=== PATIENT | male | born 1965 | race Caucasian/White ===

== ENCOUNTER 2018-11-19 15:40 | Emergency (ER) | payer OTHER, BC ==
[~2018-11-19] VITALS: Ht 177.8 cm; Wt 94.9 kg
[2018-11-19 15:50] VITALS: BP 140/56
--- NOTE | 2018-11-19 15:50 | NUR ---
PATIENT AMBULATED TO BED 8
--- NOTE | 2018-11-19 16:08 | NUR ---
53M WHO LIVES AT [facility] C/O ESOPHAGEAL SPASMS WORSENING OVER THE LAST 3 WEEKS. HAS HAD THIS PROBLEM FOR YEARS PRIOR. STATES HE IS CHOKING ON FOODS, BUT NOT WATER. STATES SLIGHT SOB. DECREASED LUNG SOUNDS ON RIGHT UPPER LOBE ANTERIORLY. MILD DISTRESS. 96-97% RA. HX- MS, MILD RETARDATION Addendum: 11/19/18 at 1619 by GARRISON HOARSE VOICE. COUGHING NOTED.
--- NOTE | 2018-11-19 16:35 | NUR ---
DR. GARIBAY EVALUATING PT AT BEDSIDE
[2018-11-19 18:35] VITALS: BP 133/57
== END 2018-11-19 18:37 | disposition home or self-care (01) ==
LOC: MED 15:40
DX: R53.1 Weakness (principal); G89.29 Other chronic pain; G35 Multiple sclerosis
CPT/HCPCS: 99283

== ENCOUNTER 2023-02-09 17:03 | Emergency (ER) | payer BC, OTHER ==
[~2023-02-09] VITALS: Ht 177.8 cm; Wt 77.1 kg
[2023-02-09 17:08] VITALS: BP 128/76; PULSE 87; RESP 18; TEMP 98.4; O2SAT 97
[2023-02-09 17:59] LABS: FLU A ANTIGEN POSITIVE (NEGATIVE); FLU B ANTIGEN NEGATIVE (NEGATIVE)
== END 2023-02-09 18:10 | disposition left against medical advice (07) ==
LOC: MED 17:03
DX: R07.0 Pain in throat (principal); Z20.822 Contact with and (suspected) exposure to COVID-19; Z53.21 Procedure and treatment not carried out due to patient leaving prior to being seen by health care provider
CPT/HCPCS: 87081; 99281; 99283

== ENCOUNTER 2023-06-02 12:25 | Emergency (ER) | payer BC, MEDICAID ==
[~2023-06-02] VITALS: Ht 177.8 cm; Wt 77.1 kg
[~2023-06-02 12:25] MED LIST: CLON0.5T4 PO; PRED20TA5 PO; QUET25TA46 PO; [UNRECOGNIZED DRUG - CODE] PO
[2023-06-02 12:33] VITALS: BP 135/99; PULSE 85; TEMP 98.3; O2SAT 96
[2023-06-02] MEDS: MORPHINE SULFATE 4 MG/ML SYR IM ONE ×2 (13:12→14:43)
[2023-06-02] MEDS: ALUMINUM HYD/MAG/SIMETHICONE 30 ML UDC PO ONE ×2 (13:13→14:38)
[2023-06-02] MEDS: FAMOTIDINE 20 MG TAB PO ONE (13:13)
[2023-06-02 13:20] LABS: BASOPHILS # (AUTO) 0.1 K/uL (0.00-0.22); BASOPHILS % (AUTO) 0.8 % (0.0-2.0); EOSINOPHILS % (AUTO) 0.1 % (0.0-4.0); HEMATOCRIT 39.1 % (36-52); HEMOGLOBIN 13.6 g/dL (12.0-18.0); LYMPHOCYTES # (AUTO) 1.1 K/uL (2.0-11.5); LYMPHOCYTES % (AUTO) 11.2 % (20.5-51.1); MEAN CORPUSCULAR HEMOGLOBIN 32 pg (27-31); MEAN CORPUSCULAR HGB CONC 35 g/dL (33-37); MEAN CORPUSCULAR VOLUME 91.6 fL (80-94); MONOCYTES # (AUTO) 0.5 K/uL (0.8-1.0); MONOCYTES % (AUTO) 4.6 % (1.7-9.3); NEUTROPHILS # (AUTO) 8.3 K/uL (1.8-7.7); NEUTROPHILS % (AUTO) 83.3 % (42.2-75.2); PLATELET COUNT (AUTO) 266 K/uL (140-450); RED BLOOD CELL COUNT(AUTO) 4.27 MIL/uL (4.20-6.10); RED CELL DISTRIBUTION WIDTH 15.2 % (11.6-13.7); WHITE BLOOD COUNT (AUTO) 9.9 K/uL (4.8-10.8)
[2023-06-02 13:33] LABS: ANION GAP 13.7 (8-16); CALCIUM 8.6 mg/dL (8.5-10.1); CARBON DIOXIDE 26.1 mmol/L (21-32); CREATININE 0.9 mg/dL (0.6-1.3); POTASSIUM 3.8 mmol/L (3.5-5.1)
[2023-06-02 13:40] LABS: ALBUMIN 3.6 g/dL (3.4-5.0); BILIRUBIN,DIRECT 0.1 mg/dL (0.0-0.3); TOTAL BILIRUBIN 0.5 mg/dL (0.0-1.0)
[2023-06-02] MEDS ORDERED: SUCR1TAB35 PO (14:22)
[2023-06-02] MEDS ORDERED: PANT40EC PO (14:22)
[2023-06-02 15:47] VITALS: BP 116/87; PULSE 95; RESP 20; O2SAT 96
[2023-06-02] MEDS ORDERED: DEXL30EC PO (15:47)
== END 2023-06-02 15:47 | disposition home or self-care (01) ==
LOC: MED 12:25
DX: K21.9 Gastro-esophageal reflux disease without esophagitis (principal); F41.9 Anxiety disorder, unspecified; Z79.899 Other long term (current) drug therapy; Z90.49 Acquired absence of other specified parts of digestive tract
CPT/HCPCS: 36415; 80048; 80076; 83690; 85025; 96372; 99284; J2270

== ENCOUNTER 2023-06-06 09:01 | Emergency (ER) | payer BC, MEDICAID ==
[~2023-06-06] VITALS: Ht 177.8 cm; Wt 81.6 kg
[~2023-06-06 09:01] MED LIST changes: +DEXL30EC PO; +PANT40EC PO; +SUCR1TAB35 PO
[2023-06-06 09:04] VITALS: BP 110/80; PULSE 117; RESP 20; TEMP 98.3; O2SAT 100
[2023-06-06] MEDS ORDERED: DICYCLOMINE HCL LIQUID 10 MG/5 ML UDC ONE (09:52)
[2023-06-06] MEDS ORDERED: ALUMINUM HYD/MAG/SIMETHICONE 30 ML UDC ONE (09:52)
[2023-06-06] MEDS: DICYCLOMINE HCL LIQUID 20 MG, ALUMINUM HYD/MAG/SIMETHICONE 30 ML, LIDOCAINE VISCOUS 2% ... PO ONE (09:56)
[2023-06-06] MEDS: FAMOTIDINE 20 MG TAB PO ONE (09:56)
[2023-06-06] MEDS: ALUMINUM HYD/MAG/SIMETHICONE 30 ML UDC PO ONE (09:57)
[2023-06-06 10:45] LABS: BASOPHILS % (AUTO) 0.7 % (0.0-2.0); EOSINOPHILS # (AUTO) 0.1 K/uL (0-0.4); HEMATOCRIT 42.7 % (36-52); HEMOGLOBIN 14.8 g/dL (12.0-18.0); LYMPHOCYTES # (AUTO) 1.3 K/uL (2.0-11.5); LYMPHOCYTES % (AUTO) 17.9 % (20.5-51.1); MEAN CORPUSCULAR HEMOGLOBIN 32 pg (27-31); MEAN CORPUSCULAR HGB CONC 35 g/dL (33-37); MEAN CORPUSCULAR VOLUME 91.9 fL (80-94); MONOCYTES # (AUTO) 0.3 K/uL (0.8-1.0); MONOCYTES % (AUTO) 4.8 % (1.7-9.3); NEUTROPHILS # (AUTO) 5.4 K/uL (1.8-7.7); NEUTROPHILS % (AUTO) 75.6 % (42.2-75.2); PLATELET COUNT (AUTO) 349 K/uL (140-450); RED BLOOD CELL COUNT(AUTO) 4.64 MIL/uL (4.20-6.10); RED CELL DISTRIBUTION WIDTH 15.1 % (11.6-13.7); WHITE BLOOD COUNT (AUTO) 7.2 K/uL (4.8-10.8)
[2023-06-06 10:58] LABS: ANION GAP 14.3 (8-16); CALCIUM 8.7 mg/dL (8.5-10.1); CARBON DIOXIDE 23.3 mmol/L (21-32); CREATININE 0.8 mg/dL (0.6-1.3); POTASSIUM 3.6 mmol/L (3.5-5.1)
[2023-06-06] MEDS: MORPHINE SULFATE 4 MG/ML SYR IM ONE (11:25)
== END 2023-06-06 11:55 | disposition home or self-care (01) ==
LOC: MED 09:01
DX: R07.0 Pain in throat (principal); K21.9 Gastro-esophageal reflux disease without esophagitis; Z79.899 Other long term (current) drug therapy
CPT/HCPCS: 36415; 71045; 80048; 84484; 85025; 93005; 96372; 99285; J2270

== ENCOUNTER 2023-06-07 11:18 | Emergency (ER) | payer BC, MEDICAID ==
[~2023-06-07] VITALS: Ht 177.8 cm; Wt 76.7 kg
[~2023-06-07 11:18] MED LIST changes: +SUCR-34 PO; -SUCR1TAB35 PO; +[UNRECOGNIZED DRUG - CODE] PO; -[UNRECOGNIZED DRUG - CODE] PO
[2023-06-07 11:28] VITALS: BP 132/81; PULSE 98; RESP 20; TEMP 98.1; O2SAT 97
[2023-06-07 14:05] LABS: BASOPHILS % (AUTO) 0.4 % (0.0-2.0); EOSINOPHILS % (AUTO) 0.4 % (0.0-4.0); HEMATOCRIT 41.3 % (36-52); HEMOGLOBIN 14.4 g/dL (12.0-18.0); LYMPHOCYTES # (AUTO) 1.4 K/uL (2.0-11.5); MEAN CORPUSCULAR HEMOGLOBIN 32 pg (27-31); MEAN CORPUSCULAR HGB CONC 35 g/dL (33-37); MEAN CORPUSCULAR VOLUME 92.4 fL (80-94); MONOCYTES # (AUTO) 0.4 K/uL (0.8-1.0); MONOCYTES % (AUTO) 4.6 % (1.7-9.3); NEUTROPHILS # (AUTO) 6.9 K/uL (1.8-7.7); NEUTROPHILS % (AUTO) 78.6 % (42.2-75.2); PLATELET COUNT (AUTO) 334 K/uL (140-450); RED BLOOD CELL COUNT(AUTO) 4.47 MIL/uL (4.20-6.10); RED CELL DISTRIBUTION WIDTH 15.2 % (11.6-13.7); WHITE BLOOD COUNT (AUTO) 8.7 K/uL (4.8-10.8)
[2023-06-07 14:20] LABS: ALBUMIN 3.8 g/dL (3.4-5.0); TOTAL BILIRUBIN 0.2 mg/dL (0.0-1.0); TOTAL PROTEIN, SERUM 7.3 g/dL (6.4-8.2)
[2023-06-07 14:22] LABS: ANION GAP 15.3 (8-16); CALCIUM 8.9 mg/dL (8.5-10.1); CARBON DIOXIDE 27.3 mmol/L (21-32); CREATININE 0.9 mg/dL (0.6-1.3); POTASSIUM 3.6 mmol/L (3.5-5.1)
[2023-06-07] MEDS ORDERED: ALUMINUM HYD/MAG/SIMETHICONE 30 ML UDC ONE (15:45)
[2023-06-07] MEDS ORDERED: DICYCLOMINE HCL LIQUID 10 MG/5 ML UDC ONE (15:45)
[2023-06-07] MEDS: DICYCLOMINE HCL LIQUID 20 MG, ALUMINUM HYD/MAG/SIMETHICONE 30 ML, LIDOCAINE VISCOUS 2% ... PO ONE (15:51)
[2023-06-07] MEDS: LORazepam 1 MG TAB PO ONE (15:51)
[2023-06-07] MEDS: OLANZapine 5 MG ODT SL ONE (15:52)
[2023-06-07] MEDS: FAMOTIDINE 20 MG TAB PO ONE (15:52)
== END 2023-06-07 17:51 | disposition left against medical advice (07) ==
LOC: MED 11:18
DX: K29.70 Gastritis, unspecified, without bleeding (principal); F41.9 Anxiety disorder, unspecified; K21.9 Gastro-esophageal reflux disease without esophagitis; Z79.899 Other long term (current) drug therapy
CPT/HCPCS: 36415; 71045; 80048; 80076; 84484; 85025; 93005; 99285

== ENCOUNTER 2023-06-26 16:32 | Emergency (ER) | payer BC, MEDICAID ==
[~2023-06-26] VITALS: Ht 177.8 cm; Wt 81.6 kg
[2023-06-26 16:35] VITALS: BP 107/72; PULSE 90; RESP 22; TEMP 97.8; O2SAT 100
[2023-06-26] MEDS ORDERED: METO-486 PO (16:56)
== END 2023-06-26 16:59 | disposition home or self-care (01) ==
LOC: MED 16:32
DX: R11.0 Nausea (principal); K21.9 Gastro-esophageal reflux disease without esophagitis; Z79.899 Other long term (current) drug therapy
CPT/HCPCS: 99281

== ENCOUNTER 2023-07-05 09:54 | Emergency (ER) | payer BC, MEDICAID ==
[~2023-07-05] VITALS: Ht 177.8 cm; Wt 77.1 kg
[~2023-07-05 09:54] MED LIST changes: +METO-486 PO
[2023-07-05 09:59] VITALS: BP 133/89; PULSE 100; RESP 18; TEMP 98.7; O2SAT 96
[2023-07-05] MEDS ORDERED: LIDO15SO10 PO (12:33)
[2023-07-05] MEDS ORDERED: DICYCLOMINE HCL LIQUID 10 MG/5 ML UDC ONE (12:34)
[2023-07-05] MEDS ORDERED: ALUMINUM HYD/MAG/SIMETHICONE 30 ML UDC ONE (12:34)
[2023-07-05] MEDS ORDERED: LANS15EC28 PO (12:35)
[2023-07-05] MEDS: DICYCLOMINE HCL LIQUID 20 MG, ALUMINUM HYD/MAG/SIMETHICONE 30 ML, LIDOCAINE VISCOUS 2% ... PO ONE (12:36)
[2023-07-05] MEDS: LANSOPRAZOLE 30 MG CAPDR PO SCH (12:37)
[2023-07-08] MEDS ORDERED: ATA25 PO (13:25)
== END 2023-07-05 12:39 | disposition home or self-care (01) ==
LOC: MED 09:54
DX: K21.9 Gastro-esophageal reflux disease without esophagitis (principal); Z90.49 Acquired absence of other specified parts of digestive tract; Z79.899 Other long term (current) drug therapy
CPT/HCPCS: 99283

== ENCOUNTER 2023-07-08 09:43 | Emergency (ER) | payer BC, MEDICAID ==
[~2023-07-08] VITALS: Ht 177.8 cm; Wt 77.1 kg
[~2023-07-08 09:43] MED LIST changes: +LANS15EC28 PO; +LIDO15SO10 PO; -SUCR-34 PO
[2023-07-08 10:03] VITALS: BP 133/71; PULSE 61; RESP 18; TEMP 96.5; O2SAT 98
[2023-07-08] MEDS: NACL 0.9% 1,000 ML IV ONE (12:13)
[2023-07-08] MEDS ORDERED: ALUMINUM HYD/MAG/SIMETHICONE 30 ML UDC ONE (12:15)
[2023-07-08] MEDS: LORazepam 2 MG/ML VIAL IVP ONE (12:20)
[2023-07-08] MEDS: ONDANSETRON 4 MG/2 ML VIAL IVP ONE (12:21)
[2023-07-08] MEDS: DICYCLOMINE HCL LIQUID 20 MG, ALUMINUM HYD/MAG/SIMETHICONE 30 ML, LIDOCAINE VISCOUS 2% ... PO ONE (12:21)
[2023-07-08] MEDS: PANTOPRAZOLE 40 MG INJ VIAL IVP ONE (12:22)
[2023-07-08 12:27] LABS: BASOPHILS # (AUTO) 0.1 K/uL (0.00-0.22); EOSINOPHILS % (AUTO) 0.6 % (0.0-4.0); HEMATOCRIT 41.3 % (36-52); LYMPHOCYTES # (AUTO) 1.2 K/uL (2.0-11.5); MEAN CORPUSCULAR HEMOGLOBIN 31 pg (27-31); MEAN CORPUSCULAR HGB CONC 34 g/dL (33-37); MEAN CORPUSCULAR VOLUME 91.8 fL (80-94); MONOCYTES # (AUTO) 0.6 K/uL (0.8-1.0); MONOCYTES % (AUTO) 10.9 % (1.7-9.3); NEUTROPHILS # (AUTO) 3.4 K/uL (1.8-7.7); NEUTROPHILS % (AUTO) 64.5 % (42.2-75.2); PLATELET COUNT (AUTO) 288 K/uL (140-450); RED CELL DISTRIBUTION WIDTH 14.7 % (11.6-13.7); WHITE BLOOD COUNT (AUTO) 5.3 K/uL (4.8-10.8)
[2023-07-08 12:49] LABS: ALBUMIN 4.1 g/dL (3.4-5.0); ANION GAP 12.9 (8-16); CARBON DIOXIDE 28.5 mmol/L (21-32); POTASSIUM 3.4 mmol/L (3.5-5.1); TOTAL BILIRUBIN 0.5 mg/dL (0.0-1.0); TOTAL PROTEIN, SERUM 7.3 g/dL (6.4-8.2)
[2023-07-08] MEDS ORDERED: ATA25 PO ×2 (13:25→15:23)
[2023-07-08 13:57] VITALS: BP 141/70; PULSE 87; RESP 19; TEMP 98.2; O2SAT 98
== END 2023-07-08 13:56 | disposition home or self-care (01) ==
LOC: MED 09:43
DX: R13.19 Other dysphagia (principal); K44.9 Diaphragmatic hernia without obstruction or gangrene; K21.9 Gastro-esophageal reflux disease without esophagitis; Z79.899 Other long term (current) drug therapy
CPT/HCPCS: 36415; 71045; 80053; 85025; 96361; 96374; 99284; J2060; J7030; C9113; J2405

== ENCOUNTER 2023-07-10 09:05 | Emergency (ER) | payer BC, MEDICAID ==
[~2023-07-10] VITALS: Ht 177.8 cm; Wt 77.1 kg
[~2023-07-10 09:05] MED LIST changes: +ATA25 PO
[2023-07-10 09:09] VITALS: PULSE 54; RESP 22; TEMP 97.5; O2SAT 93
[2023-07-10 10:05] LABS: BASOPHILS # (AUTO) 0.1 K/uL (0.00-0.22); BASOPHILS % (AUTO) 1.4 % (0.0-2.0); EOSINOPHILS # (AUTO) 0.1 K/uL (0-0.4); EOSINOPHILS % (AUTO) 2.4 % (0.0-4.0); HEMATOCRIT 39.9 % (36-52); HEMOGLOBIN 13.6 g/dL (12.0-18.0); MEAN CORPUSCULAR HEMOGLOBIN 31 pg (27-31); MEAN CORPUSCULAR HGB CONC 34 g/dL (33-37); MEAN CORPUSCULAR VOLUME 91.4 fL (80-94); MONOCYTES # (AUTO) 0.5 K/uL (0.8-1.0); MONOCYTES % (AUTO) 11.3 % (1.7-9.3); NEUTROPHILS # (AUTO) 2.8 K/uL (1.8-7.7); NEUTROPHILS % (AUTO) 62.9 % (42.2-75.2); PLATELET COUNT (AUTO) 269 K/uL (140-450); RED BLOOD CELL COUNT(AUTO) 4.37 MIL/uL (4.20-6.10); RED CELL DISTRIBUTION WIDTH 14.6 % (11.6-13.7); WHITE BLOOD COUNT (AUTO) 4.5 K/uL (4.8-10.8)
[2023-07-10 10:23] LABS: ALBUMIN 3.8 g/dL (3.4-5.0); ANION GAP 11.5 (8-16); CALCIUM 8.5 mg/dL (8.5-10.1); CREATININE 0.9 mg/dL (0.6-1.3); POTASSIUM 3.5 mmol/L (3.5-5.1); TOTAL BILIRUBIN 0.6 mg/dL (0.0-1.0); TOTAL PROTEIN, SERUM 6.9 g/dL (6.4-8.2)
[2023-07-10] MEDS ORDERED: ALUMINUM HYD/MAG/SIMETHICONE 30 ML UDC ONE (11:09)
[2023-07-10] MEDS: HYDROXYZINE HYDROCHLORIDE 25 MG TAB PO ONE (11:10)
[2023-07-10] MEDS: DICYCLOMINE HCL LIQUID 20 MG, ALUMINUM HYD/MAG/SIMETHICONE 30 ML, LIDOCAINE VISCOUS 2% ... PO ONE (11:10)
[2023-07-10] MEDS ORDERED: HYDROXYZINE HYDROCHLORIDE 25 MG TAB ONE (11:10)
[2023-07-10] MEDS ORDERED: ATA25 PO (11:36)
[2023-07-10] MEDS ORDERED: MELA10CA PO (11:40)
== END 2023-07-10 12:08 | disposition home or self-care (01) ==
LOC: MED 09:05
DX: K21.9 Gastro-esophageal reflux disease without esophagitis (principal); F41.9 Anxiety disorder, unspecified; Z79.899 Other long term (current) drug therapy
CPT/HCPCS: 36415; 71045; 80053; 85025; 99284

== ENCOUNTER 2023-10-24 06:05 | Emergency (ER) | payer BC, MEDICAID ==
[~2023-10-24] VITALS: Ht 175.3 cm; Wt 90.7 kg
[~2023-10-24 06:05] MED LIST changes: +MELA10CA PO
[2023-10-24 06:07] VITALS: BP 148/79; PULSE 100; RESP 24; TEMP 98.3; O2SAT 95
[2023-10-24 06:30] VITALS: BP 143/84; PULSE 94; RESP 19; O2SAT 94
[2023-10-24] MEDS ORDERED: ALUMINUM HYD/MAG/SIMETHICONE 30 ML UDC ONE (06:59)
[2023-10-24] MEDS ORDERED: DICYCLOMINE HCL LIQUID 10 MG/5 ML UDC ONE (06:59)
[2023-10-24] MEDS: LORazepam 1 MG TAB PO ONE (07:03)
[2023-10-24] MEDS: PANTOPRAZOLE 40 MG TABEC PO ONE (07:04)
[2023-10-24] MEDS: DICYCLOMINE HCL LIQUID 20 MG, ALUMINUM HYD/MAG/SIMETHICONE 30 ML, LIDOCAINE VISCOUS 2% ... PO ONE (07:05)
[2023-10-24] MEDS ORDERED: MAG355OR2 PO (08:03)
== END 2023-10-24 08:09 | disposition home or self-care (01) ==
LOC: MED 06:05
DX: K21.9 Gastro-esophageal reflux disease without esophagitis (principal); R07.0 Pain in throat; F41.9 Anxiety disorder, unspecified; Z79.899 Other long term (current) drug therapy
CPT/HCPCS: 93005; 99284

== ENCOUNTER 2023-11-06 06:12 | Emergency (ER) | payer BC, MEDICAID ==
[~2023-11-06] VITALS: Ht 170.2 cm; Wt 70.3 kg
[~2023-11-06 06:12] MED LIST changes: +MAG355OR2 PO
[2023-11-06 06:16] VITALS: BP 133/96; PULSE 85; RESP 22; TEMP 98.1; O2SAT 98
[2023-11-06 06:25] VITALS: O2SAT 98
[2023-11-06] MEDS: ALUMINUM HYD/MAG/SIMETHICONE 30 ML UDC PO ONE (07:00)
[2023-11-07] MEDS ORDERED: METO-486 PO (08:30)
[2023-11-07] MEDS ORDERED: MAG-27 PO (08:30)
[2023-11-07] MEDS ORDERED: HYDR25CA1 PO (08:30)
== END 2023-11-06 07:40 | disposition home or self-care (01) ==
LOC: MED 06:12
DX: K21.9 Gastro-esophageal reflux disease without esophagitis (principal); J34.89 Other specified disorders of nose and nasal sinuses; Z79.899 Other long term (current) drug therapy
CPT/HCPCS: 99283

== ENCOUNTER 2023-11-07 06:44 | Emergency (ER) | payer BC, MEDICAID ==
[~2023-11-07] VITALS: Ht 172.7 cm; Wt 74.8 kg
[2023-11-07 06:50] VITALS: BP 135/62; PULSE 61; RESP 22; TEMP 98.2; O2SAT 97
[2023-11-07] MEDS: LORazepam 0.5 MG TAB PO ONE (07:20)
[2023-11-07] MEDS: FAMOTIDINE 20 MG TAB PO ONE (07:20)
[2023-11-07] MEDS: ALUMINUM HYD/MAG/SIMETHICONE 30 ML UDC PO ONE (07:20)
[2023-11-07] MEDS ORDERED: METO-486 PO (08:30)
[2023-11-07] MEDS ORDERED: HYDR25CA1 PO (08:30)
[2023-11-07] MEDS ORDERED: MAG-27 PO (08:30)
== END 2023-11-07 08:35 | disposition home or self-care (01) ==
LOC: MED 06:44
DX: K21.9 Gastro-esophageal reflux disease without esophagitis (principal); F41.9 Anxiety disorder, unspecified; Z79.899 Other long term (current) drug therapy
CPT/HCPCS: 99284

== ENCOUNTER 2023-11-26 08:00 | Emergency (ER) | payer BC, MEDICAID ==
[~2023-11-26] VITALS: Ht 177.8 cm; Wt 77.1 kg
[~2023-11-26 08:00] MED LIST changes: +HYDR25CA1 PO; +MAG-27 PO
[2023-11-26 08:07] VITALS: BP 130/83; PULSE 91; RESP 20; TEMP 97.8; O2SAT 99
[2023-11-26 08:17] VITALS: O2SAT 99
[2023-11-26] MEDS ORDERED: ALUMINUM HYD/MAG/SIMETHICONE 30 ML UDC PO ONE (08:40)
[2023-11-26] MEDS ORDERED: ONDA-188 SL (09:02)
[2023-11-26] MEDS ORDERED: CALC355O5 PO (09:02)
[2023-11-26] MEDS ORDERED: ALUMINUM HYD/MAG/SIMETHICONE 30 ML UDC ONE (09:06)
[2023-11-26] MEDS ORDERED: DICYCLOMINE HCL LIQUID 10 MG/5 ML UDC ONE (09:06)
[2023-11-26] MEDS: DICYCLOMINE HCL LIQUID 20 MG, ALUMINUM HYD/MAG/SIMETHICONE 30 ML, LIDOCAINE VISCOUS 2% ... PO ONE (09:15)
== END 2023-11-26 09:18 | disposition home or self-care (01) ==
LOC: MED 08:00
DX: K21.9 Gastro-esophageal reflux disease without esophagitis (principal); Z79.899 Other long term (current) drug therapy
CPT/HCPCS: 93005; 99283

== ENCOUNTER 2023-12-09 09:24 | Emergency (ER) | payer BC, MEDICAID ==
[~2023-12-09] VITALS: Ht 177.8 cm; Wt 77.1 kg
[~2023-12-09 09:24] MED LIST changes: +CALC355O5 PO; +ONDA-188 SL
[2023-12-09 09:34] VITALS: BP 131/80; PULSE 84; RESP 20; TEMP 97; O2SAT 97
== END 2023-12-09 09:46 | disposition left against medical advice (07) ==
LOC: MED 09:24
DX: K21.9 Gastro-esophageal reflux disease without esophagitis (principal); Z79.899 Other long term (current) drug therapy
CPT/HCPCS: 99281